=== PATIENT | female | born 1990 | race Asian ===

== ENCOUNTER 2021-08-09 16:36 | Inpatient (IN) ==
[2021-08-09] MEDS ORDERED: Buffered Lidocaine 1% SYRIN 1 ml INTRADERM ONE (16:57)
[2021-08-09] MEDS ORDERED: Lactated Ringers 1000 ml BAG 1,000 ML IV ONE (16:57)
[2021-08-09] MEDS ORDERED: OBEPIDURAL 0 ML EPIDURAL ONE (16:58)
[2021-08-09] MEDS ORDERED: Lactated Ringers 1000 ml BAG 1,000 ML IV SCH ×2 (17:00→19:00)
[2021-08-09 17:30] LABS: ABS Eosinophils 0.1 10^3/ul (0-0.6); ABS Lymphocytes 1.3 10^3/ul (1.0-4.8); ABS Monocytes 0.7 10^3/ul (0-0.8); ABS Neutrophils 4.4 10^3/ul (1.5-7.7); Eosinophil % 1.1 %; Hematocrit 33 % (35-47); Hemoglobin 11.1 g/dL (12.0-16.0); Lymphocyte % 20.4 %; Mean Corpuscular HGB Conc 34 g/dL (31-36); Mean Corpuscular Hemoglobin 29 pg (27-31); Mean Corpuscular Volume 85 fL (80-97); Mean Platelet Volume 8.6 fL (7.4-10.4); Platelet Count 240 10^3/uL (150-450); Red Blood Count 3.86 10^6 /uL (3.70-4.87); Red Cell Distribution Width 14 % (10-15); White Blood Count 6.6 10^3/uL (3.5-10.8)
[2021-08-09 17:40] LABS: Rapid COVID-19 Molecular Undetected (Undetected)
[2021-08-09 17:45] LABS: Urine Benzodiazepine Screen None Detected (None Detect); Urine Cannabinoids Screen None Detected (None Detect); Urine Opiates Screen None Detected (None Detect)
[2021-08-09] MEDS ORDERED: fentaNYL 100 mcg/2 ml 50 MCG/ML VIAL ONE (17:53)
[2021-08-09] MEDS ORDERED: Bupivacaine 0.25% SDV PF 10 ML VIAL INJ ONE (17:53)
[2021-08-09] MEDS ORDERED: Witch Hazel PAD JAR TOPICAL PRN (18:36)
[2021-08-09] MEDS ORDERED: Glycerin ADULT 2.4 gm SUPP PR PRN (18:36)
[2021-08-09] MEDS ORDERED: Lidocaine 1% VIAL 10 MG/ML VIAL ONE (21:18)
[2021-08-09] MEDS: Dibucaine 1% OINT 28.35 GM TUBE PR PRN (21:31)
[2021-08-10 07:05] LABS: ABS Eosinophils 0.1 10^3/ul (0-0.6); ABS Lymphocytes 1.4 10^3/ul (1.0-4.8); ABS Monocytes 0.9 10^3/ul (0-0.8); Eosinophil % 0.9 %; Hematocrit 30 % (35-47); Hemoglobin 10.1 g/dL (12.0-16.0); Lymphocyte % 16.6 %; Mean Corpuscular HGB Conc 34 g/dL (31-36); Mean Corpuscular Hemoglobin 29 pg (27-31); Mean Corpuscular Volume 87 fL (80-97); Mean Platelet Volume 8.5 fL (7.4-10.4); Platelet Count 204 10^3/uL (150-450); Red Blood Count 3.49 10^6 /uL (3.70-4.87); Red Cell Distribution Width 13 % (10-15); White Blood Count 8.4 10^3/uL (3.5-10.8)
[2021-08-10] MEDS ORDERED: Measles, Mumps,Rubella VACC 0.5 ML/VIAL SUBCUT ONE (09:00)
[2021-08-10] MEDS: Dibucaine 1% OINT 28.35 GM TUBE PR PRN (19:49)
[2021-08-11 09:02] VITALS: BP 106/67
== END 2021-08-11 12:15 | disposition home or self-care (01) | DRG 807 ==
LOC: MCHOBOUT 16:36 → MCHOB 17:06
PROVIDERS: ADMIT Midwife; ATTEND Midwife